=== PATIENT | male | born 1960 | race African-American/Black ===

== ENCOUNTER 2019-12-08 17:45 | Emergency (ER) | payer OTHER ==
[~2019-12-08] VITALS: Ht 182.9 cm; Wt 124.7 kg
[~2019-12-08 17:45] MED LIST: AMBIEN 10 MG TA10 MG PO; ASPIRIN325 PO; B-100 COMPLEX1 EAC1 PO; B-12500 MCG PO; BARIATRIC ADVANTAGE PO; CALCIUM +D & M1 EAC1 PO; CINNAMON BARK1 GM PO; COLACE100 MG PO; DHEA25 MG PO; FLEXERIL PO; GLUCOSAMINE CH1 EAC9 PO; INVOKANA300 MG PO; KLONOPIN PO; KLONOPIN1 MG PO; LANTUS SUBQ; LUTEIN40 MG PO; LYRICA 50 MG50 MG PO; LYRICA100 MG PO; MAG-AL PLUS XS30 ML PO; MAGNESIUM PO; MIRALAX17 GM PO; MOM PO; MULTIVITAMINS PO; OMEGA-3 KRILL1 EAC1 PO; OXYCODONE HCL10 MG PO; OXYCODONE-ACET1 EAC2 PO; OXYCONTIN PO; OXYCONTIN20 M1 PO; OXYCONTIN30 MG PO; PERCOCET 10-321 EACH PO; PRISTIQ100 MG PO; SENNA PO; UNICOMPLEX M TA1 TA1 PO; VICTOZA0.6 MG/0.1 SUBQ; VITAMIN B12 SUBQ; VITAMIN D-32000 UNIT PO; XANAX 0.25 MG0.25 MG PO; XANAX XR1 MG PO; ZINC CHELATE50 MG PO; ZOCOR 20 MG TAB20 M1 PO; [UNRECOGNIZED DRUG - OTHER]; [UNRECOGNIZED DRUG - OTHER] PO
[2019-12-08 19:36] LABS: HEMATOCRIT 30.4 % (42.0-52.0); HEMOGLOBIN 9.3 gm/dL (14.0-18.0); MCH 17.2 pg (26.0-34.0); MCHC 30.7 g/dL (28.0-37.0); MCV 56.2 fL (80.0-100.0); PLATELET COUNT 182 thou/uL (150-400); RBC 5.41 mil/uL (4.50-6.00); RDW 21.6 % (10.5-14.5); WBC 4.9 thou/uL (4.0-11.0)
[2019-12-08 19:47] LABS: CALCIUM 7.9 mg/dL (8.5-10.1)
[2019-12-08 19:49] LABS: POTASSIUM 4.9 mmol/L (3.5-5.1)
[2019-12-08 20:17] LABS: ABSOLUTE NEUTROPHILS 2.7 thou/uL (1.4-8.2); ATYPICAL LYMPHS 1 %
[2019-12-08 20:18] LABS: HYPOCHROMASIA 3+; MICROCYTES 3+; OVALOCYTES FEW
[2019-12-09 00:20] VITALS: BP 127/58
--- NOTE | 2019-12-09 08:47 | EKG ---
[facility] [place] [address] ELECTROCARDIOGRAM REPORT Name: MIKE HZONG Room #: DEP [facility].[place]#: [id number] Admission: 12/08/19 Attend Phys: Discharge: 12/09/19 Date of : 64 Report #: [id number] THIS REPORT FOR: cc: Dedrick Lau MD, Eric K. MD Lundgren,Iggy Hager MD [facility] ~ THIS REPORT FOR: //name// [facility] ED Test Date: 2019-12-08 Test Time: 18:45:15 Pat Name: MIKE ZHONG Department: Room: Gender: [employer] Hel[employer]: [facility] : 1960 Requested By: Jonah Phan Order Number: [id number] MD: Iggy Crawley Measurements Intervals [place] Rate: 71 P: 53 AR: 161 QRS: 31 QRSD: 87 T: 20 QT: 405 QTc: 441 Interpretive Statements Sinus rhythm Normal tracing Compared to ECG 10/15/2013 07:29:35 No significant changes Electronically Signed On 12-09-2019 8:47:33 CDT by Iggy Crawley [email or web address] <ELECTRONICALLY SIGNED> By: Iggy Crawley MD, FACC 12/09/19 0847 1845 1845 Iggy Crawley MD, [facility] /EPI
== END 2019-12-09 00:22 | disposition home or self-care (01) ==
LOC: ER 17:45
PROVIDERS: Emergency Medicine
DX: S80.02XA Contusion of left knee, initial encounter (principal); S79.912A Unspecified injury of left hip, initial encounter; E11.9 Type 2 diabetes mellitus without complications; E78.5 Hyperlipidemia, unspecified; Z79.899 Other long term (current) drug therapy; Z88.2 Allergy status to sulfonamides; Z88.8 Allergy status to other drugs, medicaments and biological substances; Z88.5 Allergy status to narcotic agent; W01.0XXA Fall on same level from slipping, tripping and stumbling without subsequent striking against object, initial encounter; Y93.89 Activity, other specified; Y92.89 Other specified places as the place of occurrence of the external cause; Y99.0 Civilian activity done for income or pay